=== PATIENT | female | born 1990 | race Caucasian/White ===

== ENCOUNTER 2017-03-03 12:03 | Emergency (ER) | payer MEDICAID, OTHER ==
--- NOTE | 2017-03-03 12:45 | EDPHY ---
H & P Time Seen by Provider: 03/03/17 12:09 HPI/ROS: CHIEF COMPLAINT: Pruritic rash HPI: The patient is a 27-year-old female with no significant past medical history. She reports a pruritic rash present on her face bilateral arms and legs that began approximately 12 days ago. There was no clear etiology of the rash. The patient was seen by her physician and prescribed a 6 day course of steroids which she completed. Upon finishing this steroids, her rash return. She now our reports continued itching the same areas including her face. She denies any swelling of her tongue or difficulty breathing. She knows of no new exposures. She has been unable to follow up with a chef de partie secondary to insurance coverage. REVIEW OF SYSTEMS: Aside from elements discussed in the HPI, a comprehensive 10-point review of systems was reviewed and is negative. PMH: Tests and a positive but no known autoimmune disorder. SOCIAL HISTORY: Denies alcohol or drug abuse. PHYSICAL EXAM: General:Patient is alert, in no acute distress. ENT:Eyes are normal to inspection. ENT inspection normal. Neck: Normal inspection. Full range of motion. Respiratory:No respiratory distress. Breath sounds normal bilaterally. Cardiovascular: Regular rate and rhythm. Strong peripheral pulses. Normal cap refill. Abdomen:The abdomen is nontender to palpation. There are no peritoneal signs. There are normal bowel sounds. Back: Normal to inspection. No tenderness to palpation. Skin: Pruritic, urticarial, follicular rash is present primarily on the upper arms but also on inner thighs. This seems to spare the abdomen and back. No discharge. No cellulitis. Extremities: Normal appearance. Full range of motion. Neuro: Oriented x3. Normal motor function. Normal sensory function. Smoking Status: Never smoked Constitutional: Initial Vital Signs Temperature (C) 36.6 C 03/03/17 12:15 Heart Rate 60 03/03/17 12:15 Respiratory Rate 18 03/03/17 12:15 Blood Pressure 157/96 H 03/03/17 12:15 O2 Sat (%) 97 03/03/17 12:15 O2 Delivery Mode Room Air Allergies/Adverse Reactions: No Known Allergies Allergy (Unverified 03/03/17 12:14) Home Medications: Medication Instructions Recorded Controll Pills 03/03/17 methylPREDNISolone [Medrol Dose 1 each PO AD #1 ea 03/03/17 Archie] MDM/Departure - [facility] ED Course/Re-evaluation: This patient presents with a pruritic/urticarial rash. Given her story, I suspect that she is being continually exposed to ever allergen or other agent that is causing her rash. I will prescribe her steroids again as a temporizing measure, but the patient really needs to follow up with a chef de partie or unclaimed property manager to determine the etiology of her rash. Patient has a history of potential autoimmune disorder, but this does not appear consistent with lupus or other similar rash. Patient is comfortable with this plan. We discussed strict return precautions. - Depart Disposition: Home, Routine, Self-Care Clinical Impression: Rash Condition: Good Instructions: Urticaria (ED) Additional Instructions: Follow-up with an unclaimed property manager or chef de partie as soon as possible, within 1 week. Return to the emergency department for difficulty breathing, spread of rash or fever. Prescriptions: methylPREDNISolone [Medrol Dose Archie] 1 each PO AD #1 ea Referrals: KALIE TURNER [Primary Care Provider] - As per Instructions Elizabeth [place] MD [place] [place] - As per Instructions YUNIEL MARSH [Medical Doctor] - As per Instructions
[2017-03-03 12:52] VITALS: BP 148/86; PULSE 58; RESP 16; TEMP 98.2; O2SAT 96
== END 2017-03-03 12:52 | disposition home or self-care (01) ==
LOC: CED 12:03
DX: R21 Rash and other nonspecific skin eruption (principal)